=== PATIENT | female | born 1950 | race Caucasian/White ===

== ENCOUNTER → 2017-03-20 | Outpatient (CLI) | payer MEDICARE ==
--- NOTE | 2017-03-20 14:28 | RAD ---
EXAM: DIGITAL SCREEN BILAT W/CAD. HISTORY: Screening. COMPARISON: 03/19/2016, 03/15/2015, 03/02/2014. FINDINGS: Digital mammography was performed. Computer-aided detection (CAD) was utilized. The breast parenchyma demonstrates scattered fibroglandular densities (tissue density B). No dominant suspicious mass, suspicious microcalcifications, or architectural distortion is identified. Both breasts demonstrate scattered, benign-appearing calcifications. IMPRESSION: No mammographic evidence of malignancy. BI-RADS CATEGORY: 2 BENIGN FINDING(S) RECOMMENDED FOLLOW-UP: 12M 12 MONTH FOLLOW-UP PQRS compliance statement: Patient information was entered into a reminder system with a target due date for the next mammogram. Mammography is a sensitive method for finding small breast cancers, but it does not detect them all and is not a substitute for careful clinical examination. A negative mammogram does not negate a clinically suspicious finding and should not result in delay in biopsying a clinically suspicious abnormality. "Our facility is accredited by the [employer] Mammography Program."
== END | disposition home or self-care (01) ==
LOC: MAMMO 13:48
PROVIDERS: ATTEND Family Medicine
DX: Z12.31 Encounter for screening mammogram for malignant neoplasm of breast (principal)
CPT/HCPCS: G0202; 77067

== ENCOUNTER → 2018-03-21 | Outpatient (CLI) | payer MEDICARE | END | disposition home or self-care (01) | LOC: MAMMO 13:50 | DX: Z12.31 Encounter for screening mammogram for malignant neoplasm of breast (principal) | CPT/HCPCS: 77063; 77067 ==

== ENCOUNTER → 2018-12-05 | Outpatient (CLI) | payer MEDICARE ==
--- NOTE | 2018-12-05 11:44 | KCIC ---
Examination: MRI left shoulder without contrast HISTORY: History of left shoulder impingement, chronic left shoulder pain COMPARISON: None available TECHNIQUE: Multiplanar, multisequence MR imaging of the left shoulder performed without contrast. FINDINGS: The long of the biceps tendon is within the bicipital groove. The attachment of the long head of the biceps tendon to superior labral anchor grossly appears intact. There is moderate increased signal identified in the subscapularis, supraspinatus, infraspinatus tendons likely tendinosis There is a small focus of full-thickness tear identified in the supraspinatus tendon in the conjoined portion measuring 7 mm in AP dimension with extension of fluid into the subacromial subdeltoid bursa. The visualized third teres minor tendon grossly appears intact Moderate degenerative changes identified in the acromioclavicular joint and the glenohumeral joint. There is mild increased signal identified throughout the labrum likely degeneration. The muscle bulk grossly appears unremarkable, There is mild obscuration of fat in the rotator interval. IMPRESSION: 1. Small focus of full-thickness tear identified in the supraspinatus tendon in the conjoined portion with extension of fluid into the subacromial/subdeltoid bursa. 2. Tendinosis of the subscapularis, supraspinatus, infraspinatus tendons. 3. There is mild obscuration of fat in the rotator interval. Correlate with adhesive capsulitis. Electronically signed by: Saul Freedamn MD (12/05/2018 11:40 AM) [id number]
== END | disposition home or self-care (01) ==
LOC: KCIC MRI 10:34
PROVIDERS: ATTEND Orthopaedic Surgery
DX: M75.82 Other shoulder lesions, left shoulder (principal); M75.102 Unspecified rotator cuff tear or rupture of left shoulder, not specified as traumatic
CPT/HCPCS: 73221